=== PATIENT | male | born 1945 | race Caucasian/White ===

== ENCOUNTER 2017-12-21 23:37 | Inpatient (IN) | payer OTHER, BC ==
[~2017-12-21] VITALS: Ht 180.3 cm; Wt 113.0 kg
[2017-12-22 00:58] LABS: HEMATOCRIT 40.9 % (38.0-50.0); HEMOGLOBIN 13.8 G/DL (12.5-16.6); MCH 28.8 PG (29.0-34.0); MCHC 33.7 G/DL (30.0-36.0); MCV 85.4 FL (86-99); PLATELET COUNT 183 K/uL (156-360); RBC DIS.WIDTH-CV 13.5 % (11.8-14.6); RED BLOOD COUNT 4.79 M/uL (4.00-5.50); WHITE BLOOD COUNT 7.2 K/uL (4.1-10.2)
[2017-12-22 01:12] LABS: ALBUMIN 3.9 g/dL (3.2-4.8); CHLORIDE 107 mEq/L (99-109); POTASSIUM 3.9 mEq/L (3.7-5.4); SODIUM 140 mEq/L (136-147)
[2017-12-22 01:14] LABS: GLUCOSE 162 mg/dL (70-99); TOTAL PROTEIN 6.7 g/dL (6.4-8.3)
[2017-12-22 01:16] LABS: TOTAL BILIRUBIN 0.7 mg/dL (0.0-1.0)
[2017-12-22 01:18] LABS: ALKALINE PHOSPHATASE 65 IU/L (3-129); CREATININE 0.8 mg/dL (0.6-1.3); GFR ESTIMATE (CALCULATED) > 59 mL/min/ (58.99-99999)
[2017-12-22 01:19] LABS: UREA NITROGEN (BUN) 24 mg/dL (9-23)
[2017-12-22 01:20] LABS: AST (GOT) 121 IU/L (2-34)
[2017-12-22 01:21] LABS: ALT (GPT) 110 IU/L (3-49)
[2017-12-22 01:30] LABS: TROP-I INTERPRETATION NEGATIVE; TROPONIN-I < 0.01 ng/mL (0.0-0.30)
[2017-12-22 02:21] LABS: LIPASE 17 U/L (1.0-51.0)
[2017-12-22] MEDS ORDERED: TRAZODONE HCL100 MG PO (07:34)
[2017-12-22] MEDS ORDERED: LOW DOSE ASPIRI81 M1 PO (07:34)
[2017-12-22] MEDS ORDERED: OMEPRAZOLE40 M1 PO (07:34)
[2017-12-22] MEDS ORDERED: LOPRESSOR25 MG PO (07:34)
[2017-12-22] MEDS ORDERED: RED YEAST RICE600 M1 PO (07:35)
[2017-12-22] MEDS ORDERED: B-COMPLEX WITH1 EAC3 PO (07:35)
[2017-12-22] MEDS ORDERED: ONCE DAILY1 EACH PO (07:36)
[2017-12-22] MEDS ORDERED: VITAMIN D31000 UNI2 PO (07:36)
[2017-12-22] MEDS ORDERED: OSTEO BI-FLEX1 EAC3 PO (07:36)
[2017-12-22] MEDS ORDERED: ALEVE220 MG PO (07:37)
[2017-12-22 07:41] LABS: APPEARANCE CLEAR ((CLEAR)); BILIRUBIN NEGATIVE; BLOOD NEGATIVE; COLOR YELLOW ((YELLOW)); GLUCOSE (STRIP) NEGATIVE; KETONES NEGATIVE; LEUKOCYTES NEGATIVE; NITRITE NEGATIVE; PROTEIN (STRIP) NEGATIVE; SPECIFIC GRAVITY 1.035 (1.000-1.030); UCUL ADDED? NO; UROBILINOGEN 0.2 MG/DL (0.2-1.0)
[2017-12-22 08:22] VITALS: BP 152/67
[2017-12-22 15:37] VITALS: BP 129/66
[2017-12-23 00:25] VITALS: BP 115/58
[2017-12-23 05:53] LABS: BASOPHIL (%) 0.3 % (0-1); EOSINOPHIL (%) 0 % (0-5); HEMATOCRIT 35.5 % (38.0-50.0); IMMATURE GRANULOCYTE (%) 0.8 % (0.0-0.7); LYMPHOCYTE (%) 3.1 % (15-42); LYMPHOCYTE COUNT 0.2 K/uL (1.0-2.8); MCHC 33.8 G/DL (30.0-36.0); MCV 85.7 FL (86-99); MONOCYTE (%) 5.4 % (3-12); MONOCYTE COUNT 0.4 K/uL (0-0.8); NEUTROPHIL (%) 90.4 % (45-76); PLATELET COUNT 136 K/uL (156-360); RBC DIS.WIDTH-CV 14.3 % (11.8-14.6); RED BLOOD COUNT 4.14 M/uL (4.00-5.50); WHITE BLOOD COUNT 7.8 K/uL (4.1-10.2)
[2017-12-23 06:22] LABS: ALBUMIN 3.2 G/DL (3.2-4.8); ALKALINE PHOSPHATASE 51 IU/L (3-129); ALT (GPT) 321 IU/L (3-49); AST (GOT) 125 IU/L (2-34); CHLORIDE 103 MEQ/L (99-109); CREATININE 0.8 MG/DL (0.6-1.3); GFR ESTIMATE (CALCULATED) > 59 mL/min/ (58.99-99999); GLUCOSE 112 mg/dL (70-99); POTASSIUM 3.7 MEQ/L (3.7-5.4); SODIUM 137 MEQ/L (136-147); TOTAL BILIRUBIN 2.1 MG/DL (0.0-1.0); TOTAL PROTEIN 5.3 G/DL (6.4-8.3); UREA NITROGEN (BUN) 22 mg/dL (9-23)
[2017-12-23 08:02] VITALS: BP 118/63
[2017-12-23 11:30] VITALS: BP 130/67
[2017-12-23 15:24] VITALS: BP 118/61
[2017-12-24 00:09] VITALS: BP 125/64
[2017-12-24 05:56] LABS: BASOPHIL (%) 0.5 % (0-1); HEMATOCRIT 35.9 % (38.0-50.0); HEMOGLOBIN 11.8 G/DL (12.5-16.6); IMMATURE GRANULOCYTE (%) 0.5 % (0.0-0.7); LYMPHOCYTE COUNT 0.6 K/uL (1.0-2.8); MCH 28.1 PG (29.0-34.0); MCHC 32.9 G/DL (30.0-36.0); MCV 85.5 FL (86-99); MONOCYTE (%) 7.3 % (3-12); MONOCYTE COUNT 0.3 K/uL (0-0.8); NEUTROPHIL (%) 74.7 % (45-76); NEUTROPHIL COUNT 2.9 K/uL (1.8-6.4); PLATELET COUNT 124 K/uL (156-360); RBC DIS.WIDTH-CV 14.2 % (11.8-14.6); RBC DIS.WIDTH-SD 44.2 % (39-53); WHITE BLOOD COUNT 3.8 K/uL (4.1-10.2)
[2017-12-24 06:23] LABS: ALBUMIN 3.1 G/DL (3.2-4.8); ALKALINE PHOSPHATASE 65 IU/L (3-129); ALT (GPT) 184 IU/L (3-49); CHLORIDE 107 MEQ/L (99-109); CREATININE 0.7 MG/DL (0.6-1.3); GFR ESTIMATE (CALCULATED) > 59 mL/min/ (58.99-99999); GLUCOSE 107 mg/dL (70-99); POTASSIUM 3.7 MEQ/L (3.7-5.4); SODIUM 137 MEQ/L (136-147); TOTAL PROTEIN 5.2 G/DL (6.4-8.3); UREA NITROGEN (BUN) 16 mg/dL (9-23)
[2017-12-24 06:30] LABS: AST (GOT) 58 IU/L (2-34); TOTAL BILIRUBIN 1.6 MG/DL (0.0-1.0)
[2017-12-24 08:38] VITALS: BP 114/67
[2017-12-24 11:38] VITALS: BP 107/62
[2017-12-24 16:03] VITALS: BP 127/70
[2017-12-24 19:34] VITALS: BP 129/71
[2017-12-25] VITALS: BP 143/79
[2017-12-25 03:22] VITALS: BP 108/55
[2017-12-25 07:22] VITALS: BP 139/77
[2017-12-25 11:40] VITALS: BP 128/71
[2017-12-25 16:26] VITALS: BP 129/84
[2017-12-26 00:47] VITALS: BP 141/80
[2017-12-26 04:30] VITALS: BP 128/73
[2017-12-26 08:06] VITALS: BP 133/86
[2017-12-26] MEDS ORDERED: AUGMENTIN875 MG PO (10:44)
== END 2017-12-26 12:12 | disposition home or self-care (01) | DRG 872 ==
LOC: EME → EDBD 23:37 → EME 23:37 → EDOF 12-22 07:15 → 5SOUTH 12-22 07:15 → ENRESERV 12-22 07:19 → 5SOUTH 12-22 08:03
PROVIDERS: Emergency Medicine; Hospitalist
DX: R78.81 Bacteremia (principal); R10.13 Epigastric pain; C61 Malignant neoplasm of prostate; E87.2 Acidosis; R65.10 Systemic inflammatory response syndrome (SIRS) of non-infectious origin without acute organ dysfunction; I10 Essential (primary) hypertension; G47.33 Obstructive sleep apnea (adult) (pediatric); E86.0 Dehydration; I25.10 Atherosclerotic heart disease of native coronary artery without angina pectoris; K21.9 Gastro-esophageal reflux disease without esophagitis; D61.818 Other pancytopenia; Z81.8 Family history of other mental and behavioral disorders; Z85.46 Personal history of malignant neoplasm of prostate; Z92.3 Personal history of irradiation
CPT/HCPCS: 71045; 74177; 76705; 77336; 77385; 80053; 81003; 83605; 83690; 84484; 85025; 85027; 87040; 87186; 87801; 93005; 94799; 99281; 99285; J0295; J0692; J0696; J1644; J2405; J2765; J3370; J3480; J7030; J7050; J7120